=== PATIENT | female | born 1940 | race Caucasian/White ===

== ENCOUNTER 2017-04-16 09:58 | Emergency (ER) | payer OTHER ==
[~2017-04-16] VITALS: Ht 175.3 cm; Wt 83.9 kg
[~2017-04-16 09:58] MED LIST: ANTIVERT25 MG PO; NOHOMEMEDICATIONS
[2017-04-16] MEDS ORDERED: ARICEPT 5 MG TAB5 MG PO (10:05)
[2017-04-16 10:20] LABS: ABSOLUTE NEUTROPHILS 5.5 thou/uL (1.4-8.2); BASOPHILS 0.5 % (0.0-2.0); HEMATOCRIT 40.6 % (37.0-47.0); LYMPHOCYTES 31.2 % (24.0-44.0); MANUAL DIFF NO; MCH 32.7 pg (26.0-34.0); MCHC 34.4 g/dL (28.0-37.0); MCV 94.9 fL (80.0-100.0); MONOCYTES 7.4 % (1.0-8.0); PLATELET COUNT 277 thou/uL (150-400); POLYS 58.9 % (36.0-66.0); RBC 4.27 mil/uL (4.20-5.00); RDW 12.9 % (10.5-14.5); WBC 9.3 thou/uL (4.0-11.0)
[2017-04-16 10:27] LABS: CREATININE 0.9 mg/dL (0.6-1.0); POTASSIUM 3.9 mmol/L (3.5-5.1)
[2017-04-16] MEDS ORDERED: NORCO 5-325 TA1 EACH PO ×2 (12:34→12:38)
[2017-04-16 13:13] VITALS: BP 124/64
== END 2017-04-16 13:17 ==
LOC: ER 09:58
PROVIDERS: Nurse Practitioner
DX: S42.292A Other displaced fracture of upper end of left humerus, initial encounter for closed fracture (principal); G30.9 Alzheimer's disease, unspecified; W18.39XA Other fall on same level, initial encounter; Y93.89 Activity, other specified; Y92.89 Other specified places as the place of occurrence of the external cause; Y99.8 Other external cause status